=== PATIENT | male | born 1985 | race Caucasian/White ===

== ENCOUNTER 2018-02-09 10:22 | Day surgery (SDC) | payer OTHER ==
[2018-02-02 11:51] LABS: HEMATOCRIT 41.1 % (37.9-51.0); MEAN CORPUSCULAR HEMOGLOBIN 27.9 pg (27.0-33.4); MEAN CORPUSCULAR VOLUME 82 fl (80-97); PLATELET COUNT 316 10^3/uL (150-450); RED BLOOD COUNT 5.01 10^6/uL (4.35-5.55); RED CELL DISTRIBUTION WIDTH 14.8 % (11.5-14.0)
[2018-02-02 12:04] LABS: APPEARANCE,URINE CLEAR; BILIRUBIN,URINE NEGATIVE (NEGATIVE); COLOR,URINE YELLOW; GLUCOSE, URINE NEGATIVE (NEGATIVE); KETONES,URINE NEGATIVE (NEGATIVE); LEUKOCYTE ESTERASE,URINE NEGATIVE (NEGATIVE); NITRITE,URINE NEGATIVE (NEGATIVE); PROTEIN,URINE NEGATIVE (NEGATIVE); UROBILINOGEN,URINE NEGATIVE mg/dL (<2.0)
[2018-02-02 12:19] LABS: ANION GAP 12 (5-19); BLOOD UREA NITROGEN 13 mg/dL (7-20); CALCIUM 9.4 mg/dL (8.4-10.2); CARBON DIOXIDE 30 mmol/L (22-30); CHLORIDE 101 mmol/L (98-107); GLUCOSE 83 mg/dL (75-110); POTASSIUM 4.7 mmol/L (3.6-5.0); SODIUM 143.2 mmol/L (137-145)
[~2018-02-09 10:22] MED LIST: ACETAMINOPHEN 1,000 MG/100 ML RTUPB IV ONE; BUPIVACAINE HCL 0.5 % INJ/PF 30 ML SDV ONE; CEFAZOLIN 2 GM/D5W RTU 2 GM/50 ML RTUPB IV PRN; DEXAMETHASONE SOD PHOSPHATE INJ 4 MG/1 ML VIAL ONE; FENTANYL CITRATE INJ/PF 250 MCG/5 ML AMPULE ONE; KETOROLAC TROMETHAMINE 60 MG/2 ML SDV ONE; LACTATED RINGERS 1000 ML IV PRN; LIDOCAINE 0.5% INJ-PF (5 MG/ML) 50 ML SDV SUBCUT PRN; LIDOCAINE 1% INJ-PF (10 MG/ML) 30 ML SDV ONE; LIDOCAINE 2% INJ-PF (20 MG/ML) 10 ML AMPUL ONE; MIDAZOLAM 2 MG/2 ML INJ ONE; ONDANSETRON HCL INJ/PF 4 MG/2 ML SDV ONE; PROPOFOL INJ 200 MG/20 ML VIAL IV ONE
[2018-02-09] MEDS ORDERED: CEFAZOLIN 2 GM/D5W RTU 2 GM/50 ML RTUPB IV ONE (11:13)
[2018-02-09] MEDS ORDERED: MORPHINE SULFATE 10 MG/ML INJ IV PRN ×2 (14:45→17:54)
[2018-02-09] MEDS ORDERED: FENTANYL CITRATE INJ/PF 100 MCG/2 ML AMPUL IV PRN ×3 (14:45)
[2018-02-09] MEDS ORDERED: ONDANSETRON HCL INJ/PF 4 MG/2 ML SDV IV PRN ×2 (14:45→17:54)
[2018-02-09] MEDS ORDERED: DIPHENHYDRAMINE HCL 50 MG/ML VIAL IV PRN (14:45)
[2018-02-09] MEDS ORDERED: PROMETHAZINE HCL INJ 25 MG/1 ML VIAL IV PRN ×2 (14:45)
[2018-02-09] MEDS ORDERED: MEPERIDINE HCL/PF INJ 25 MG/1 ML DISP.SYRIN IV PRN (14:45)
[2018-02-09] MEDS ORDERED: LIDOCAINE 2%/EPINEPHRINE INJ 20 ML VIAL ONE ×2 (17:51→18:01)
[2018-02-09] MEDS ORDERED: ROPIVACAINE HCL 0.5% INJ/PF (5 MG/1 ML) 30 ML SDV ONE (17:52)
[2018-02-09] MEDS ORDERED: LIDOCAINE 2% INJ (20 MG/ML) 20 ML MDV ONE (17:54)
[2018-02-09] MEDS ORDERED: OXYCODONE-ACETAMINOPHEN 5-325 MG TABLET PO PRN (17:54)
--- NOTE | 2018-02-09 18:09 | Discharge Summary ---
Discharge Summary (SDC) - Discharge Final Diagnosis: Posterolateral Rotatory Instablity Date of Surgery: 02/09/18 Discharge Date: 02/09/18 Condition: Good Treatment or Instructions: Schedule Follow Up w/ Dr. Sami Baca @ [facility] for Surgery to be seen in 10-14 days or as scheduled [place]: [place]: [place]: Ice and elevate Keep splint clean/dry/intact. If your fingers become numb please unwrap the Moise wrap but leave the splint in place, if the sensation does not return within 30 minutes please return to the emergency department. May begin finger range of motion attempting to make full fist. Please use ibuprofen (Motrin or Advil) 600-800 mg every 8 hours as needed for pain or fever DO NOT TAKE w/ TORADOL may use once TORADOL complete. You may also use acetaminophen (Tylenol) 1000 mg every 4-6 hours as needed for pain or fever. Please be aware that many medications contain acetaminophen, do not exceed a total of 1000 mg of acetaminophen every 6 hours. If ibuprofen and acetaminophen are not sufficient for your pain you may take the Percocet/[place]. Please be aware that the Percocet/[place] does contain Tylenol. Stool softener of choice when on pain medication. Prescriptions: Ketorolac Tromethamine [Toradol 10 mg Tablet] 10 mg PO Q8HP PRN #12 tablet PRN Reason: Oxycodone HCl/Acetaminophen [Percocet 5-325 mg Tablet] 1 tab PO Q6 PRN #25 tab PRN Reason: Referrals: CLARISSA PENA MD [Primary Care Provider] - Discharge Diet: As Tolerated Respiratory Treatments at Home: Deep Breathing/Coughing Discharge Activity: No Lifting Over 10 Pounds, No Lifting/Push/Pulling Report the Following to Your Physician Immediately: Fever over 101 Degrees, Unusual Bleeding, Redness, Swelling, Warmth, Increased Soreness
--- NOTE | 2018-02-09 18:09 | Operative Report ---
Operative Report DATE OF SURGERY: 02/09/18 PREOPERATIVE DIAGNOSIS: Right elbow posterolateral rotatory instability, partial UCL tear POSTOPERATIVE DIAGNOSIS: Above plus intra-articular synovitis right elbow, flexion contracture OPERATION: 1. Lateral ulnar collateral ligament reconstruction utilizing allograft. 2. Placement of internal joint stabilizer/internal-external fixator. 3. Intra-articular synovectomy. 4. Anterior capsular release SURGEON: PHYLLIS KUNZ COMPLICATIONS: None ESTIMATED BLOOD LOSS: Minimal PROCEDURE: Indication for above procedure: 32-year-old male who sustained an injury to his elbow this past June since then has been having pain and discomfort. Patient had findings consistent with lateral ulnar collateral ligament disruption with underlying synovitis and partial medial collateral ligament disruption which was confirmed on MRI. Patient followed up with me at which point we discussed treatment options including possible diagnoses such as possible underlying inflammatory arthropathy. We attempted conservative measures and referral to a bell valet to felt patient did not have inflammatory arthritis. Thus we discussed treatment options including operative versus nonoperative intervention. We discussed treatment options including lateral ulnar collateral ligament reconstruction with placement of internal fixator and possible elbow arthroscopy after further discussing treatment in the preoperative holding area decision was made to proceed with lateral ulnar collateral ligament reconstruction with possible placement of internal fixator. Procedure In Detail: Patient was seen and evaluated in the preoperative holding area. The RIGHT upper extremity was initialized and marked. Patient received 2g of Ancef IV for bacterial prophylaxis. Patient was taken back to the operative room where transferred to the operative table and placed under general anesthesia. Once they were adequately anesthetized a nonsterile tourniquet was placed on the upper extremity. A surgical team debriefing was performed ensuring all instrumentation was available, the surgical procedure was discussed with possible concerns reviewed. The upper extremity was prepped with ChloraPrep and draped in a sterile fashion. A timeout was done identifying correct patient, procedure and extremity everyone in attendance agree with this and verbalized no concerns. The extremity was exsanguinated the tourniquet was inflated to 250 mmHg. Intraoperative examination under anesthesia demonstrated positive pivot shift test for PLRI which was done under C-arm fluoroscopy. There is also evidence of medial widening with stress. Longitudinal skin incision was made centered over the lateral epicondyle. Patient's forearm was held in pronation to protect the PIN nerve. Via the Deedee approach the interval between the ECU/anconeus was established. Once splitting the fibers significant amount of intra-articular synovial fluid which was clear appearing extruded. There was complete tear of the extensor tendon along with complete disruption of the lateral ulnar collateral ligament. There is gross instability of the lateral ligamentous complex. Partial synovectomy was performed the synovial fluid and synovium was then sent to pathology. There is no evidence of intra-articular loose bodies. No evidence of underlying osteochondral changes or degeneration of the articular cartilage. he joint once again was exposed and the anterior capsule released off the anterior humerus which restored patient's passive range of motion and corrected his flexion contracture. Given the amount of gross instability decision was made to proceed with lateral ulnar collateral ligament reconstruction with allograft and placement of secondary internal fixator. With C-arm fluoroscopy of the supinator crest was identified for placement of the distal portion of the graft. This was confirmed with a K wire. The 5 mm reamer was then placed. On the back table the graft which was a anterior tibialis tendon was prepared measuring 20 mm x 4 mm. This was then secured within the supinator crest. Under C-arm fluoroscopy and utilization of the aiming arm the isometric point within the capitellum was established and the guidepin for the skeletal dynamics internal joint stabilizer was determined. Given the need for reconstruction and placement of internal fixator secondary to patient's gross instability decision was made to place the graft tunnel just proximal to the isometric point of the internal joint stabilizer. Once AP and lateral projections were obtained confirming appropriate placement of the guidepin this was then drilled and the guidepin placed into position. The proximal guide tunnel was then made with a 5 mm reamer. The FiberWire and and tibialis graft was then placed into the fork-tipped swivel lock with the elbow reduced in pronation and flexion of 90 degrees. With the range of motion this was tensioned appropriately there is no evidence of tightness with flexion or extension. The FiberWire sutures were left intact to allow for later extensor tendon repair. However given patient's residual instability medially decision was made to complete fixation with the internal joint stabilizer. The proximal olecranon was then exposed with careful attention avoiding dissection of the L UCL reconstruction tunnel. The baseplate was placed into position and secured with 3 bicortical screws. The construct was then assembled. The joint was concentrically reduced and all aspects of the internal joint stabilizer were tightened into position. There is no evidence of widening or instability on examination or C arm fluoroscopy. With passive range of motion patient had full passive extension with less than 5 degree flexion contracture with passive extension. Tourniquet was then deflated. Any peripheral bleeding was controlled with bipolar cautery until the wound was dry. The mobile wad was resecured back to the lateral epicondyle with the remaining FiberWire sutures which was secured with a Krakw suture from proximal to distal and distal to proximal. The remaining fascia was then reapproximated with interrupted 0 Vicryl suture. 30 cc of 0.5% lidocaine without epinephrine was injected for postoperative pain control. Patient was placed in a well-padded posterior elbow splint at 90 degrees of flexion. Sponge counts, instrument counts, were correct. According to nursing staff needle counts were not correct C-arm fluoroscopy was obtained confirming no evidence of needle hardware within the surgical site. Patient was then awoken from anesthesia. Transferred from the operating room table to the operating room stretcher. There was no intraoperative complications patient tolerated procedure well stable to PACU. Postoperative plan: Patient will be set up for occupational therapy and begin range of motion exercises within 5-7 days postoperatively to achieve maximal range of motion. We will continue to await pathology results and discuss findings with the patient.
--- NOTE | 2018-02-09 18:12 | RADIOLOGY REPORT (SQ) ---
EXAM DESCRIPTION: NO CHG FLUORO COMPLETE DATE/TIME: 02/09/2018 6:04 pm REASON FOR STUDY: RT ELBOW RECONSTRUCTION ALLOGRAFT, W/PLACEMENT OF INTERNAL FIXATOR M25.421 EFFUSI ON, RIGHT ELBOW S53.431A RADIAL COLLATERAL LIGAMENT SPRAIN OF RIGHT ELBOW, I FINDINGS: Please see combined report for performance of procedure and radiologic supervision and int erpretation. IMPRESSION: Please see combined report for performance of procedure and radiologic supervision and i nterpretation. Reading location - IP/workstation name: [email or web address]
--- NOTE | 2018-02-09 18:12 | RADIOLOGY REPORT (SQ) ---
EXAM DESCRIPTION: ELBOW RIGHT AP/LAT COMPLETED DATE/TIME: 02/09/2018 6:04 pm REASON FOR STUDY: RT ELBOW RECONSTRUCTION ALLOGRAFT, W/PLACEMENT OF INTERNAL FIXATOR M25.421 EFFUSI ON, RIGHT ELBOW S53.431A RADIAL COLLATERAL LIGAMENT SPRAIN OF RIGHT ELBOW, I COMPARISON: None. FLUOROSCOPY TIME: 1.5 minutes Spot images saved to PACS. TECHNIQUE: Intra-operative images acquired during surgical procedure to evaluate progress. NUMBER OF IMAGES: 4 LIMITATIONS: None. FINDINGS: Fluoroscopy was provided for intraoperative procedure. Please refer to the operative repo rt for further discussion. IMPRESSION: IMAGE(S) OBTAINED DURING PROCEDURE. COMMENT: Quality ID [id number]: Final reports for procedures using fluoroscopy that document radiation exp osure indices, or exposure time and number of fluorographic images (if radiation exposure indices are not available) Please consult full operative report of the attending physician for description of the procedure. TECHNICAL DOCUMENTATION: JOB ID: [id number] [email or web address]- All Rights Reserved Reading location - IP/workstation name: [email or web address]
[2018-02-09] MEDS ORDERED: OXYCODONE-ACETAMINOPHEN 5-325 MG TABLET ONE (18:38)
[2018-02-09 19:44] VITALS: BP 130/82
== END 2018-02-09 19:35 | disposition home or self-care (01) ==
LOC: OROUT 10:22
PROVIDERS: ATTEND Orthopaedic Surgery
DX: S53.431A Radial collateral ligament sprain of right elbow, initial encounter (principal); M24.421 Recurrent dislocation, right elbow; M65.88 Other synovitis and tenosynovitis, other site; M24.521 Contracture, right elbow; X58.XXXA Exposure to other specified factors, initial encounter
CPT/HCPCS: 36415; 85027; 80048; 81001; 88305 ×2; 73070; 24344; J2795; J2250; J3490 ×4; J1100; J1885; J3010; J2405; J2704; J0690; J0131; 01740

== ENCOUNTER 2018-06-08 11:09 | Day surgery (SDC) | payer OTHER ==
[~2018-06-08 11:09] MED LIST changes: -CEFAZOLIN 2 GM/D5W RTU 2 GM/50 ML RTUPB IV PRN; +FENTANYL CITRATE INJ/PF 100 MCG/2 ML AMPUL ONE; -FENTANYL CITRATE INJ/PF 250 MCG/5 ML AMPULE ONE; -KETOROLAC TROMETHAMINE 60 MG/2 ML SDV ONE; -LACTATED RINGERS 1000 ML IV PRN; +LIDOCAINE 0.5% INJ-PF (5 MG/ML) 50 ML SDV ONE; -LIDOCAINE 0.5% INJ-PF (5 MG/ML) 50 ML SDV SUBCUT PRN; -LIDOCAINE 1% INJ-PF (10 MG/ML) 30 ML SDV ONE; -LIDOCAINE 2% INJ-PF (20 MG/ML) 10 ML AMPUL ONE
[2018-06-08 11:43] LABS: HEMATOCRIT 43.5 % (37.9-51.0); HEMOGLOBIN 15.1 g/dL (13.5-17.0); MEAN CORPUSCULAR HEMOGLOBIN 28.7 pg (27.0-33.4); MEAN CORPUSCULAR HGB CONC 34.8 g/dL (32.0-36.0); MEAN CORPUSCULAR VOLUME 82 fl (80-97); PLATELET COUNT 265 10^3/uL (150-450); RED BLOOD COUNT 5.28 10^6/uL (4.35-5.55); RED CELL DISTRIBUTION WIDTH 16.1 % (11.5-14.0); WHITE BLOOD COUNT 7.4 10^3/uL (4.0-10.5)
[2018-06-08] MEDS ORDERED: CEFAZOLIN 2 GM/D5W RTU 2 GM/50 ML RTUPB IV ONE (11:57)
--- NOTE | 2018-06-08 12:01 | RADIOLOGY REPORT (SQ) ---
EXAM DESCRIPTION: CHEST SINGLE VIEW COMPLETED DATE/TIME: 06/08/2018 11:48 am REASON FOR STUDY: PREOP COMPARISON: None. EXAM PARAMETERS: NUMBER OF VIEWS: One view. TECHNIQUE: Single frontal radiographic view of the chest acquired. RADIATION DOSE: NA LIMITATIONS: None. FINDINGS: LUNGS AND PLEURA: No opacities, masses or pneumothorax. No pleural effusion. MEDIASTINUM AND HILAR STRUCTURES: No masses. Contour normal. HEART AND VASCULAR STRUCTURES: Heart normal in size. Normal vasculature. BONES: No acute findings. HARDWARE: None in the chest. OTHER: No other significant finding. IMPRESSION: NO ACUTE RADIOGRAPHIC FINDING IN THE CHEST. TECHNICAL DOCUMENTATION: JOB ID: [id number] [employer]- All Rights Reserved Reading location - IP/workstation name: [email or web address]
[2018-06-08 12:06] LABS: ANION GAP 9 (5-19); BLOOD UREA NITROGEN 13 mg/dL (7-20); CALCIUM 9.5 mg/dL (8.4-10.2); CARBON DIOXIDE 26 mmol/L (22-30); CHLORIDE 106 mmol/L (98-107); GLUCOSE 95 mg/dL (75-110); POTASSIUM 3.8 mmol/L (3.6-5.0); SODIUM 141.3 mmol/L (137-145)
--- NOTE | 2018-06-08 13:31 | EKG REPORT ---
SEVERITY:- NORMAL ECG - SINUS RHYTHM : Confirmed by: Tray Ervin MD 08-Jun-2018 13:30:28
[2018-06-08] MEDS ORDERED: ONDANSETRON HCL INJ/PF 4 MG/2 ML SDV IV PRN (13:43)
[2018-06-08] MEDS ORDERED: MEPERIDINE HCL/PF INJ 25 MG/1 ML DISP.SYRIN IV PRN (13:43)
[2018-06-08] MEDS ORDERED: PROMETHAZINE HCL INJ 25 MG/1 ML VIAL IV PRN ×2 (13:43)
[2018-06-08] MEDS ORDERED: MORPHINE SULFATE 10 MG/ML INJ IV PRN ×2 (13:43→14:27)
[2018-06-08] MEDS ORDERED: DIPHENHYDRAMINE HCL 50 MG/ML VIAL IV PRN (13:43)
[2018-06-08] MEDS ORDERED: FENTANYL CITRATE INJ/PF 100 MCG/2 ML AMPUL IV PRN ×3 (13:43)
[2018-06-08] MEDS ORDERED: ONDANSETRON HCL INJ/PF 4 MG/2 ML SDV ONE (14:27)
[2018-06-08] MEDS ORDERED: OXYCODONE-ACETAMINOPHEN 5-325 MG TABLET PO PRN (14:27)
--- NOTE | 2018-06-08 14:28 | Discharge Summary ---
Discharge Summary (SDC) - Discharge Final Diagnosis: Retained hardware right elbow with contracture Date of Surgery: 06/08/18 Discharge Date: 06/08/18 Condition: Good Treatment or Instructions: Schedule Follow Up w/ Dr. Sami Baca @ [facility] for Surgery to be seen in 10-14 days or as scheduled [place]: [place]: [place]: May remove dressing on postop day #3, keep incision covered and dry. Ice and elevate May begin finger range of motion attempting to make full fist. Stool softener of choice when on pain medication. USE OF POOC-DTO-YHVMBBI IBUPROFEN: Ibuprofen (Advil, Nuprin, Medipren, Motrin IB) is a medication for fever and pain control. In addition, it has anti- inflammatory effects which may be beneficial, especially in the treatment of injuries. It's best to take ibuprofen with food. Persons with ulcer disease or allergy to aspirin should notify their physician of this before taking ibuprofen. Ibuprofen can be given every four to six hours, for a total of four doses daily. Age Pain or fever dose Antiinflammatory dose 6-8 yr 200 mg (1 tab) 200 mg (1 tab) 9-11 yr 200 mg (1 tab) 200-400 mg (1-2 tab) 11-14 yr 200-400 mg (1-2 tab) 400 mg (2 tab) 15-adult 400 mg (2 tab) 600 mg (3 tab) ORAL NARCOTIC MEDICATION: You have been given a prescription for pain control. This medication is a narcotic. It's best taken with food, as nausea can result if taken on an empty stomach. Don't operate machinery or drive within six hours of taking this medication. Do not combine this medicine with alcohol, or with any medication which can cause sedation (such as cold tablets or sleeping pills) unless you get permission from the physician. Narcotics tend to cause constipation. If possible, drink plenty of fluids and eat a diet high in fiber and fruits. Please be aware that prescription narcotics also have the potential for abuse. People become addicted to these medications because of the general sense of wellbeing that they induce. This feeling along with a significant reduction in tension, anxiety, and aggression provides a stimulating seductive quality to these drugs. Once your pain is under control, we encourage you to discard your unused narcotics. Prescriptions: Oxycodone HCl/Acetaminophen [Percocet 5-325 mg Tablet] 1 tab PO Q6 PRN #25 tab PRN Reason: Referrals: SHAREE PENA [Primary Care Provider] - Discharge Diet: As Tolerated Respiratory Treatments at Home: Deep Breathing/Coughing Discharge Activity: No Lifting Over 10 Pounds, No Lifting/Push/Pulling Report the Following to Your Physician Immediately: Fever over 101 Degrees, Unusual Bleeding, Redness, Swelling, Warmth
--- NOTE | 2018-06-08 14:33 | Operative Report ---
Operative Report DATE OF SURGERY: 06/08/18 PREOPERATIVE DIAGNOSIS: Retained hardware right elbow with contracture POSTOPERATIVE DIAGNOSIS: Same OPERATION: Removal of hardware right elbow with capsular release SURGEON: PHYLLIS KUNZ ANESTHESIA: GA COMPLICATIONS: None ESTIMATED BLOOD LOSS: Minimal PROCEDURE: Indication for above procedure: 32-year-old male with history of ligamentous instability and underlying synovitis. Patient underwent ligament reconstruction with placement of internal joint stabilizer. Intraoperative pathology demonstrated intra-articular synovitis consistent with inflammatory arthropathy since then patient has been treated by insurance administrative assistant and has seen significant improvement in both his pain and range of motion. At this point decision was made to proceed with operative intervention which include removal of hardware and contracture release. Procedure In Detail: Patient was seen and evaluated in the preoperative holding area. The RIGHT upper extremity was initialized and marked. Patient received 2g of Ancef IV for bacterial prophylaxis. Patient was taken back to the operative room where transferred to the operative table and placed under general anesthesia. Once they were adequately anesthetized a nonsterile tourniquet was placed on the upper extremity. A surgical team debriefing was performed ensuring all instrumentation was available, the surgical procedure was discussed with possible concerns reviewed. The upper extremity was prepped with ChloraPrep and draped in a sterile fashion. A timeout was done identifying correct patient, procedure and extremity everyone in attendance agree with this and verbalized no concerns. The extremity was exsanguinated the tourniquet was inflated to 250 mmHg. Previous skin incision was utilized. Blunt dissection was performed until the axis pin at the center of rotation along the capitellum was identified. There is significant adhesions of the skin to the underlying extensor mechanism. The interval between the EDC and ECRL was utilized to isolate the axis pin and successfully removed. Any peripheral veins were coagulated bipolar. Separate skin incision was made along the olecranon at the baseplate. Blunt dissection once again performed to free the baseplate from the underlying scar tissue sharp dissection was performed. The 3 screws were then removed including the connecting arm. Screw holes were then debrided with a curette including any overgrown bone. The anchor for the lateral ulnar collateral ligament reconstruction was identified and graft remained intact. Through Gilbert's interval a small arthrotomy was made anterior to the radial head. Blunt dissection was performed to expose the radiocapitellar joint. Partial capsulectomy was performed and a roblero elevator was placed along the anterior aspect of the humerus freeing capsule and a portion of the extensor mechanism. There was no significant intra-articular synovitis appreciated. Once adequately released for active and passive elbow range of motion was achieved. C-arm fluoroscopy was obtained confirming full range of motion. There is no evidence of medial or lateral instability with stress. There is no crepitus with elbow range of motion. Full pronation/supination. Concentric reduction on lateral view. Wound was then copiously irrigated with normal saline. Gilbert's interval was closed with interrupted 2-0 Vicryl suture. Subcutaneous tissues were closed with interrupted 4-0 Monocryl suture. Skin was closed with interrupted 3-0 nylon horizontal mattress. 30 cc of 0.5% bupivacaine without epinephrine. Tourniquet was deflated and soft dressing placed. Sponge counts, instrument counts, needle counts were correct. Patient was then awoken from anesthesia. Transferred from the operating room table to the operating room stretcher. There was no intraoperative complications patient tolerated procedure well stable to PACU. Postop plan: Patient will begin occupational therapy immediately to achieve optimal and maximal range of motion. Patient will follow in the office we will obtain radiographs at that time.
[2018-06-08] MEDS ORDERED: LIDOCAINE 2% INJ (20 MG/ML) 20 ML MDV ONE (14:37)
[2018-06-08] MEDS ORDERED: ROPIVACAINE HCL 0.5% INJ/PF (5 MG/1 ML) 30 ML SDV ONE (14:38)
[2018-06-08] MEDS ORDERED: LIDOCAINE 1%/EPINEPHRINE INJ 20 ML VIAL ONE (14:38)
[2018-06-08] MEDS: FENTANYL CITRATE INJ/PF 100 MCG/2 ML AMPUL ONE ×2 (14:40→14:45)
[2018-06-08] MEDS ORDERED: METOCLOPRAMIDE HCL INJ/PF 10 MG/2 ML SDV ONE (15:13)
--- NOTE | 2018-06-08 15:42 | RADIOLOGY REPORT (SQ) ---
EXAM DESCRIPTION: NO CHG FLUORO COMPLETE DATE/TIME: 06/08/2018 2:23 pm REASON FOR STUDY: RIGHT ELBOW HARDWARE REMOVAL M25.421 EFFUSION, RIGHT ELBOW FINDINGS: Please see combined report for performance of procedure and radiologic supervision and int erpretation. IMPRESSION: Please see combined report for performance of procedure and radiologic supervision and i nterpretation. Reading location - IP/workstation name: [email or web address]
--- NOTE | 2018-06-08 15:42 | RADIOLOGY REPORT (SQ) ---
EXAM DESCRIPTION: ELBOW LEFT AP/LATERAL COMPLETED DATE/TIME: 06/08/2018 2:23 pm REASON FOR STUDY: RIGHT ELBOW HARDWARE REMOVAL M25.421 EFFUSION, RIGHT ELBOW COMPARISON: None. FLUOROSCOPY TIME: 0.1 minutes Spot images saved to PACS. TECHNIQUE: Intra-operative images acquired during surgical procedure to evaluate progress. NUMBER OF IMAGES: 5 LIMITATIONS: None. FINDINGS: Fluoroscopy was provided for intraoperative procedure. Please refer to the operative repo rt for further discussion. IMPRESSION: IMAGE(S) OBTAINED DURING PROCEDURE. COMMENT: Quality ID [id number]: Final reports for procedures using fluoroscopy that document radiation exp osure indices, or exposure time and number of fluorographic images (if radiation exposure indices are not available) Please consult full operative report of the attending physician for description of the procedure. TECHNICAL DOCUMENTATION: JOB ID: [id number] [employer]- All Rights Reserved Reading location - IP/workstation name: [email or web address]
[2018-06-08 16:23] VITALS: BP 133/71
== END 2018-06-08 16:15 | disposition home or self-care (01) ==
LOC: OROUT 11:09
PROVIDERS: ATTEND Orthopaedic Surgery
DX: T84.84XA Pain due to internal orthopedic prosthetic devices, implants and grafts, initial encounter (principal); Y83.8 Other surgical procedures as the cause of abnormal reaction of the patient, or of later complication, without mention of misadventure at the time of the procedure; M24.521 Contracture, right elbow; M25.421 Effusion, right elbow; M06.9 Rheumatoid arthritis, unspecified; K21.9 Gastro-esophageal reflux disease without esophagitis; I48.91 Unspecified atrial fibrillation; Z86.14 Personal history of Methicillin resistant Staphylococcus aureus infection; Z79.899 Other long term (current) drug therapy
CPT/HCPCS: 20680; 27612; 36415; 85027; 80048; 71045; 73070; 93005; 93010; J2795; J2250; J3490 ×4; J1100; J3010; J2765; J2405; J2704; J0690; J0131; 01740